=== PATIENT | female | born 1935 | race Caucasian/White ===

== ENCOUNTER → 2024-06-23 09:41 | Outpatient (REF) | payer OTHER, SELFPAY ==
[2024-06-23 12:38] LABS: % Basophils 0.7 % (0-2); % Eosinophils 2.6 % (0-6); % Immature Granulocytes 0.3 % (0-0.5); % Lymphocytes 39.7 % (20.5-51.1); % Monocytes 9.6 % (1.7-9.3); % Neutrophils 47.1 % (42.2-75.2); Absolute Basophils 0.1 10^3/uL (0-0.2); Absolute Eosinophils 0.2 10^3/uL (0-0.7); Absolute Lymphocytes 3.7 10^3/uL (1.2-3.4); Absolute Monocytes 0.9 10^3/uL (0.1-0.6); Absolute Neutrophils 4.3 10^3/uL (1.4-6.5); Hematocrit 44.9 % (37.0-47.0); Hemoglobin 15.5 g/dL (12.0-16.0); Mean Corp Hgb Conc. 34.5 g/dL (33.0-37.0); Mean Corpuscular Hgb 31.6 pg (27.0-31.0); Mean Corpuscular Volume 91.4 fL (81.0-99.0); Mean Platelet Volume 10.5 fL (7.4-10.4); Nucleated Red Blood Cells % 0 %; Platelet Count 284 10^3/uL (130-400); Red Blood Cell Count 4.91 10^6/uL (4.20-5.40); Red Cell Dist. Width 13.4 % (11.5-14.5); White Blood Cell Count 9.2 10^3/uL (4.8-10.8)
[2024-06-23 13:39] LABS: ALT (SGPT) 25 U/L (0-35); AST (SGOT) 31 U/L (14-36); Albumin 4.1 g/dl (3.5-5.0); Alkaline Phosphatase 56 U/L (38-126); Blood Urea Nitrogen 24 mg/dl (7-17); Calcium 10.4 mg/dl (8.4-10.2); Carbon Dioxide 33 mmol/L (22-30); Chloride 97 mmol/L (98-107); Creatine Phosphokinase 32 U/L (30-135); Glucose 91 mg/dl (70-99); HDL Cholesterol 103 mg/dl; LDL Cholesterol, Calculated 59 mg/dl; Potassium 3.8 mmol/L (3.5-5.1); Sodium 136 mmol/L (135-145); Total Bilirubin 1.5 mg/dl (0.2-1.3); Total Cholesterol 180 mg/dl (50-199); Total Protein 6.7 g/dl (6.3-8.2); Triglyceride 92 mg/dl (10-149); Uric Acid 4.9 mg/dl (2.5-6.2); Very Low Density Lipoprotein 18 mg/dl (0-30); eGFR > 60.00
[2024-06-23 14:08] LABS: Glycohemoglobin (HgbA1c) 6.3 % (4.0-5.6)
[2024-06-26 01:00] LABS: ANA, IgG Reflex to HEp-2 None Detected (None Detected)
[2024-06-26 07:09] LABS: Histone Antibody, IgG 0.7 Units (0.0-0.9)
== END ==
LOC: OLABPV 09:41
PROVIDERS: ATTENDING PHYSICIAN Family Medicine
DX: D72.828 Other elevated white blood cell count (principal); R73.03 Prediabetes; E78.2 Mixed hyperlipidemia; M1A.0690 Idiopathic chronic gout, unspecified knee, without tophus (tophi)
CPT/HCPCS: 80053; 80061; 82550; 83036; 83516; 84550; 85025; 86038

== ENCOUNTER → 2024-07-23 15:18 | Outpatient (REF) | payer OTHER, SELFPAY ==
[2024-07-23 16:42] LABS: Urine Albumin Negative (Neg - Trace); Urine Bilirubin Negative (Negative); Urine Character Clear (Clear); Urine Color Yellow; Urine Glucose Negative (Negative); Urine Ketone Negative (Negative); Urine Leukocyte 2+ (Negative); Urine Nitrite Negative (Negative); Urine Occult Blood Negative (Negative); Urine Urobilinogen Negative (Neg - 1+)
[2024-07-23 16:57] LABS: Hematocrit 45.5 % (37.0-47.0); Hemoglobin 15.6 g/dL (12.0-16.0); Mean Corp Hgb Conc. 34.3 g/dL (33.0-37.0); Mean Corpuscular Hgb 31.5 pg (27.0-31.0); Mean Corpuscular Volume 91.7 fL (81.0-99.0); Platelet Count 294 10^3/uL (130-400); Red Blood Cell Count 4.96 10^6/uL (4.20-5.40); Red Cell Dist. Width 13.5 % (11.5-14.5)
[2024-07-23 17:02] LABS: Blood Urea Nitrogen 14 mg/dl (7-17); Calcium 10.5 mg/dl (8.4-10.2); Carbon Dioxide 31 mmol/L (22-30); Chloride 100 mmol/L (98-107); Glucose 105 mg/dl (70-99); Potassium 4.4 mmol/L (3.5-5.1); Sodium 142 mmol/L (135-145); eGFR > 60.00
[2024-07-23 17:11] LABS: Urine Mucus Few; Urine Squamous Cell 0-2 /LPF (Few)
[2024-07-23 17:12] LABS: Urine Red Blood Cell 0-2 /HPF (0-2)
== END ==
LOC: REG 15:18
PROVIDERS: ATTENDING PHYSICIAN Family Medicine
DX: R53.83 Other fatigue (principal); I10 Essential (primary) hypertension
CPT/HCPCS: 36415; 80048; 81003; 81015; 85027; 87077; 87086; 87186

== ENCOUNTER → 2024-11-10 11:34 | Outpatient (REF) | payer OTHER, SELFPAY | LOC: RAD 11:34 | PROVIDERS: ATTENDING PHYSICIAN Internal Medicine | DX: M79.675 Pain in left toe(s) (principal); R58 Hemorrhage, not elsewhere classified | CPT/HCPCS: 73660 ==

== ENCOUNTER 2024-11-27 12:03 | Emergency (ER) | payer OTHER, SELFPAY ==
[2024-11-27 12:04] VITALS: BP 146/71
[2024-11-27 12:41] LABS: % Basophils 1.1 % (0-2); % Eosinophils 6.4 % (0-6); % Immature Granulocytes 0.3 % (0-0.5); % Lymphocytes 31.5 % (20.5-51.1); % Monocytes 8.1 % (1.7-9.3); % Neutrophils 52.6 % (42.2-75.2); Absolute Basophils 0.1 10^3/uL (0-0.2); Absolute Eosinophils 0.7 10^3/uL (0-0.7); Absolute Lymphocytes 3.2 10^3/uL (1.2-3.4); Absolute Monocytes 0.8 10^3/uL (0.1-0.6); Absolute Neutrophils 5.4 10^3/uL (1.4-6.5); Hematocrit 44.4 % (37.0-47.0); Hemoglobin 15.3 g/dL (12.0-16.0); Mean Corp Hgb Conc. 34.5 g/dL (33.0-37.0); Mean Corpuscular Hgb 31.7 pg (27.0-31.0); Mean Corpuscular Volume 92.1 fL (81.0-99.0); Mean Platelet Volume 9.9 fL (7.4-10.4); Nucleated Red Blood Cells % 0 %; Platelet Count 291 10^3/uL (130-400); Red Blood Cell Count 4.82 10^6/uL (4.20-5.40); Red Cell Dist. Width 13.4 % (11.5-14.5); White Blood Cell Count 10.2 10^3/uL (4.8-10.8)
[2024-11-27 12:50] LABS: ALT (SGPT) 33 U/L (0-35); AST (SGOT) 42 U/L (14-36); Albumin 4.5 g/dl (3.5-5.0); Alkaline Phosphatase 63 U/L (38-126); Blood Urea Nitrogen 19 mg/dl (7-17); Calcium 10.2 mg/dl (8.4-10.2); Carbon Dioxide 29 mmol/L (22-30); Chloride 101 mmol/L (98-107); Glucose 143 mg/dl (70-99); Potassium 4.7 mmol/L (3.5-5.1); Sodium 138 mmol/L (135-145); Total Bilirubin 0.9 mg/dl (0.2-1.3); Total Protein 7.3 g/dl (6.3-8.2); eGFR > 60.00
[2024-11-27 12:58] LABS: NT-proBNP 312 pg/ml
[2024-11-27 18:28] VITALS: BMI 27.6
[2024-11-27 18:30] VITALS: BP 155/88
[2024-11-27 19:46] VITALS: BP 142/68
[2024-11-27 20:00] VITALS: BP 147/68
--- NOTE | 2024-11-27 20:10 | ED.GENMED ---
History of Present Illness
General
Chief Complaint: Swelling
Source: patient and spouse
Exam Limitations: none
Time Seen by Provider: 11/27/24 17:35
Nursing documentation reviewed up to this point in time: agreed with
History of Present Illness
History of Present Illness:
89-year-old female with a past medical history of hypertension, hyperlipidemia, asthma who presents to the emergency department with her for evaluation of leg swelling. Patient reports that she has noticed this issue slowly progressive over
the past 3 weeks. She notices swelling in the legs somewhat worse on the left. She denies any change in the skin or redness. She says she has some mild discomfort in the feet. She denies any swelling in the abdomen or weight gain. She denies
any shortness of breath or chest pain. She denies any dizziness. She denies any cough or orthopnea. She denies any other complaints. She denies having had similar symptoms in the past.
Past History
Past History
ED Past Medical History: HTN
ED Past Surgical History: None
Social History
Tobacco: Non-smoker
Alcohol: None
Drug: None
Personal:
Living: with family
Employment: Retired
Review of Systems
Review of Systems
All Other Systems: ROS reviewed and negative except as documented in HPI and ROS
Constitutional: Denies fever
Respiratory: Denies cough or trouble breathing
Cardiac: Denies chest pain
ABD/GI: Denies abdominal pain, nausea or vomiting
: Denies flank pain
Musculoskeletal: Reports edema; Denies neck pain or back pain
Neurological: Denies dizzy or headache
Phy Exam
Physical Exam
Physical Exam:
General: Awake, alert, oriented x3 and very pleasant; no acute distress
Head: Normocephalic, atraumatic
Eyes: Conjunctiva normal
Throat: Airway intact, handling secretions
Neck: Trachea midline, no JVD
Lungs: Clear to auscultation bilaterally, no wheezing, rales, rhonchi
Heart: Regular rate and rhythm, no murmurs, gallops, or rubs
Abd: Soft, non distended, nontender
Neuro: No gross deficits
Skin: no rash, no erythema or induration of the skin in the legs, no wounds
Extremities: Patient has trace edema in the bilateral legs somewhat worse around the ankles and somewhat worse on the left; she has good pulses throughout femoral, popliteal, DP bilaterally
Scores
Heart Failure Risk
Heart Failure Risk Score: Not Applicable
Heart Score for Chest Pain Patients
STEMI patient?: Not applicable
Withdrawal Assessment of Alcohol
Withdrawal Assessment Completed?: Not applicable
Course
Orders/Labs/Results
Orders:
Orders
11/27/24 12:08
Electrocardiogram (*1) Urgent
Reason for Study: Other
Other Reason for Exam: swelling
11/27/24 12:09
EKG- Treatment ONCE
11/27/24 12:17
Complete Blood Count/With Diff Urgent
Comprehensive Metabolic Panel Urgent
NT-proBNP Urgent
11/27/24 18:47
US Periph Venous LOWER Ext Rafael Urgent
Comment:
Reason For Exam: bl leg swelling L>>R
Abnormal Lab Results
11/27/24
12:17
MCH 31.7 H pg
(27.0-31.0)
Absolute Monos (auto) 0.8 H 10^3/uL
(0.1-0.6)
Eosinophils % 6.4 H %
(0-6)
BUN 19 H mg/dl
(7-17)
Glucose 143 H mg/dl
(70-99)
AST 42 H U/L
(14-36)
11/27/24 12:17
11/27/24 12:17
Vital Signs
Initial and Last Documented VS:
Initial Vital Signs
Temp Pulse Resp BP Pulse Ox
36.3 C 85 18 146/71 99
11/27/24 12:04 11/27/24 12:04 11/27/24 12:04 11/27/24 12:04 11/27/24 12:04
Last Documented Vital Signs
Temp Pulse Resp BP Pulse Ox
36.3 C 85 18 146/71 99
11/27/24 12:04 11/27/24 12:04 11/27/24 12:04 11/27/24 12:04 11/27/24 12:04
MDM/Problems Addressed
Differential Diagnosis Includes:
Dependent edema, DVT, CHF
MDM/Problems Addressed:
89-year-old female presents for evaluation of leg swelling gradually progressing over the past few weeks. Somewhat worse on the left but generally mild. No other symptoms noted. She has no signs or symptoms of cellulitis or infection. Vitals and
exam as above. She had labs sent off including a CBC and a CMP which were unremarkable. She had a proBNP sent in triage which was essentially negative. Sent for bilateral lower extremity ultrasound which showed no signs of DVT. Suspect likely
this is dependent edema. I had a long discussion with the patient about conservative measures including increasing activity, compression, elevation and monitoring salt intake. Will also prescribe 3-day course of Lasix to help with swelling. She
has a follow-up appoint with her primary doctor scheduled in a little over a week which I urged her to keep. She feels very comfortable with this plan. We spoke about return precautions and all questions were answered.
*Radiology
Radiology exam reviewed: radiology read reviewed
*Pulse Oximetry
Patient hypoxic: no
*EKG
Interpreted by ED Provider?: Yes
Heart Rate: 78
Rate: normal
Rhythm: sinus
Ebony: left axis deviation
Interval: normal interval
QRS Pattern: normal QRS
Ischemia: no ischemia
*Critical Care Note
Total Time (30-74mins, 75-104mins- exclusive of procedures): Not Applicable
Data Reviewed
Review of Other/Old Records Reveals: Labs and Records
Source: patient, records and spouse
ED Attending Note
-
Portions of this chart may have been created with voice recognition software.� Occasional wrong word or��sound alike� substitutions may have occurred due to the inherent limitations of voice recognition software.
Discharge Plan
Departure
Patient Disposition: Home (Routine Discharge)
Date of Disposition: 11/27/24
Time of Disposition: 20:01
Patient with high blood pressure during this ER visit?: No
Discharge Problem:
Dependent edema
Instructions: Dependent Edema (DC)
Prescriptions:
New
furosemide [Lasix] 20 mg tablet
20 mg PO DAILY Qty: 3 0RF
No Action
latanoprost 0.005 % Drops
1 drp BOTH EYES HS
atorvastatin 20 mg Tablet
20 mg PO HS
ketoconazole 2 % Shampoo
1 applic TOPICAL .ONCE/WEEK NEEDED PRN (Reason: scalp and face)
Rx Instructions:
09/23/2023, patient states that they take this medication once a week as needed.
metoprolol succinate 50 mg Tablet Extended Release 24 Hr
50 mg PO DAILY
clobetasol 0.05 % Cream
1 applic TOPICAL DAILY PRN (Reason: skin condition)
allopurinol 100 mg Tablet
100 mg PO DAILY
montelukast 10 mg Tablet
10 mg PO HS
hydrochlorothiazide 25 mg Tablet
25 mg PO DAILY
hydroxyzine HCl 10 mg Tablet
10 mg PO DAILY
cholecalciferol (vitamin D3) 25 mcg (1,000 unit) Tablet
25 mcg PO DAILY
fluticasone furoate-vilanterol [Breo Ellipta] 100-25 mcg/dose Blister With Device
1 inh INHALATION R DAILYPRN PRN (Reason: sob)
Referrals:
Luis Humphries Jr., [Family Provider] - Follow up in 5-7 days
Activity Restrictions/Additional Instructions:
You were seen in the emergency room for leg swelling. In the emergency room you had an ultrasound which showed no blood clots and you had an exam and lab work which showed no signs of heart failure. You are prescribed a medication (Lasix (to take
for the next 3 days to try and help with your swelling. You should also keep your legs elevated when resting; you should also buy compression stockings from the pharmacy to wear. These things can help with leg swelling. You should also try to
ensure that you are moving your legs regularly�try to take a walk every day for at least 10 to 15 minutes and if you are sitting in a chair try to get up regularly to move around (every hour). If your symptoms are worsening or if you develop new
symptoms including shortness of breath or chest pain please return to the emergency room. Otherwise you should follow-up with your primary doctor within the next week to be reassessed.
Thank you for visiting the Emergency Department at [facility].
1. Please schedule a follow up appointment as directed. Call first thing tomorrow morning to make an appointment.
2. If indicated, please take your medications as instructed and indicated on discharge paperwork.
3. If any of your symptoms do not improve, or persist, or become more severe within 6-12 hours, please return to the emergency department for further care.
4. Please return to the emergency department if you develop a headache, neck pain/stiffness, fever greater than 100.4F, chest pain, shortness of breath, persistent nausea, vomiting, slurred speech, difficulty walking, numbness/tingling, weakness,
signs of infection or any other symptoms that are worrisome to you.
Please call [phone] if you have any questions.
Interventions
Interventions:
*Risk Screen - Suicide Last Done: 11/27/24 12:04
*General Assessment Last Done: 11/27/24 12:04
*Neglect/Abuse Screening Last Done: 11/27/24 12:07
ED- Fall Risk Assessment Last Done: 11/27/24 18:40
*ED COVID-19 Vaccine History Last Done: 11/27/24 18:29
ED- Cardiac Assessment Last Done: 11/27/24 18:40
ED- Pulmonary Assessment Last Done: 11/27/24 18:40
ED-Skin Assessment Last Done: 11/27/24 18:40
Discharge Date and Time
Print Language: CONGOLESE
== END 2024-11-27 20:44 | disposition home or self-care (01) ==
LOC: EMR 12:03
PROVIDERS: Emergency Medicine; EMERGENCY PHYSICIAN Emergency Medicine; FAMILY PHYSICIAN Family Medicine
DX: R60.0 Localized edema (principal); I10 Essential (primary) hypertension; E78.5 Hyperlipidemia, unspecified; J45.909 Unspecified asthma, uncomplicated; M10.9 Gout, unspecified; Z88.8 Allergy status to other drugs, medicaments and biological substances
CPT/HCPCS: 99284; 80053; 83880; 85025; 93005; 93970

== ENCOUNTER → 2025-03-09 13:22 | Outpatient (REF) | payer OTHER, SELFPAY ==
[2025-03-09 13:51] LABS: % Basophils 1.4 % (0-2); % Eosinophils 8.4 % (0-6); % Immature Granulocytes 0.1 % (0-0.5); % Lymphocytes 31.2 % (20.5-51.1); % Monocytes 8.4 % (1.7-9.3); % Neutrophils 50.5 % (42.2-75.2); Absolute Basophils 0.1 10^3/uL (0-0.2); Absolute Eosinophils 0.7 10^3/uL (0-0.7); Absolute Lymphocytes 2.5 10^3/uL (1.2-3.4); Absolute Monocytes 0.7 10^3/uL (0.1-0.6); Hemoglobin 14.9 g/dL (12.0-16.0); Mean Corp Hgb Conc. 33.9 g/dL (33.0-37.0); Mean Corpuscular Hgb 31.3 pg (27.0-31.0); Mean Corpuscular Volume 92.4 fL (81.0-99.0); Nucleated Red Blood Cells % 0 %; Platelet Count 264 10^3/uL (130-400); Red Blood Cell Count 4.76 10^6/uL (4.20-5.40); Red Cell Dist. Width 13.3 % (11.5-14.5); White Blood Cell Count 7.9 10^3/uL (4.8-10.8)
[2025-03-09 14:11] LABS: ALT (SGPT) 34 U/L (0-35); AST (SGOT) 38 U/L (14-36); Albumin 4.1 g/dl (3.5-5.0); Alkaline Phosphatase 70 U/L (38-126); Blood Urea Nitrogen 18 mg/dl (7-17); Calcium 10.2 mg/dl (8.4-10.2); Carbon Dioxide 31 mmol/L (22-30); Chloride 102 mmol/L (98-107); Glucose 110 mg/dl (70-99); Potassium 4.5 mmol/L (3.5-5.1); Sodium 140 mmol/L (135-145); Total Protein 6.8 g/dl (6.3-8.2); eGFR > 60.00
== END ==
LOC: OLABPV 13:22
PROVIDERS: ATTENDING PHYSICIAN Family Medicine
DX: R53.83 Other fatigue (principal); R73.03 Prediabetes; R79.89 Other specified abnormal findings of blood chemistry
CPT/HCPCS: 36415; 80053; 85025